=== PATIENT | male | born 1970 | race Caucasian/White ===

== ENCOUNTER 2019-05-07 09:59 | Emergency (ER) | payer SELFPAY ==
[2019-05-07] MEDS ORDERED: HYDROmorphone 1 MG/ML Syringe IVPUSH ONE (10:50)
[2019-05-07] MEDS ORDERED: Dexamethasone 4 MG/ML 5 ML MDV IV ONE (10:51)
--- NOTE | 2019-05-07 10:59 | EDM.PDOC ---
ED HPI GENERAL MEDICAL PROBLEM - General Chief Complaint: Back Pain or Injury Stated Complaint: [facility] Time Seen by Provider: 05/07/19 10:44 Source of Information: Reports: Patient History Limitations: Reports: Physical Impairment (Severely limited by any range of motion of his back.) - History of Present Illness INITIAL COMMENTS - FREE TEXT/NARRATIVE: 48-year-old male presents to the ED with diffuse severe lumbar spine pain. He states that 2 days ago he was doing very heavy lifts he states around 585 pounds. He states at the time that he did this work out he had warmed up his back appropriately. He states that he does not feel any pop or pain in his back that time. The following morning which was yesterday morning he felt stiffness and soreness on his back which only worsened as the day went on. This morning pain was so bad that he could not get out of bed on his own. He had called the [place] [facility] to come and pick him up. He has no radicular pain into either lower extremity. Pain is localized to one side versus the other. It is across his entire lower back. It seems to radiate up his lower back to the inferior aspects of his scapula. Even deep breathing hurts. Severe muscle spasms are evident that just above drop him to the floor. He states he has no polyp problems thus far with emptying his bladder he has not had a bowel movement today. He has never had any similar type injuries. Believe that the injuries are work-related. Onset: Gradual Onset Date: 05/06/19 (Awoke yesterday morning with mild pain sides of his lower back which is gradually intensified over the last 24 hours.) Duration: Hour(s):, Getting Worse Location: Reports: Back (Lumbar spine.). Denies: Radiates to Quality: Reports: Ache, Throbbing, Other Severity: Severe (Intermittent severe muscle spasms that will merely put him to the ground.) Improves with: Reports: Rest Worsens with: Reports: Movement (He can have spasms even at rest however.) Context: Reports: Other (Did lifting heavy weights.). 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) Lower Back Pain Score (Numeric/FACES): 8 - Related Data Allergies Allergy/AdvReac Type Severity Reaction Status Date / Time No Known Allergies Allergy Verified 05/07/19 10:06 Home Meds: Home Meds Cyclobenzaprine [Flexeril] 10 mg PO Q8H PRN #15 tab 05/07/19 [Rx] Diclofenac Sodium [Voltaren] 50 mg PO TID #24 tab.ec 05/07/19 [Rx] oxyCODONE HCl/Acetaminophen [Percocet 5-325 mg Tablet] 1 - 2 each PO Q4H PRN # 20 tablet 05/07/19 [Rx] predniSONE [Deltasone] 20 mg PO BID #10 tablet 05/07/19 [Rx] Past Medical History - Past Health History Medical/Surgical History: Denies Medical/Surgical History Social & Family History - Tobacco Use Smoking Status *Q: Never Smoker - Recreational Drug Use Recreational Drug Use: Yes Recreational Drug Use Frequency: Socially - Living Situation & Occupation Occupation: Employed ED ROS GENERAL - Review of Systems Review Of Systems: See Below Constitutional: Denies: Fever, Chills, Malaise, Weakness, Decreased Appetite HEENT: Reports: No Symptoms Respiratory: Reports: No Symptoms Cardiovascular: Reports: No Symptoms Endocrine: Reports: No Symptoms GI/Abdominal: Reports: No Symptoms Musculoskeletal: Reports: Back Pain (Severe bilateral low back pain with strong intermittent spasms), Muscle Pain, Muscle Stiffness (Severe) Skin: Reports: No Symptoms Neurological: Reports: No Symptoms, Other (No radiculopathy into either lower extremity.). Denies: Numbness, Paresthesia, Tingling Psychiatric: Reports: No Symptoms Hematologic/Lymphatic: Reports: No Symptoms Immunologic: Reports: No Symptoms ED EXAM,LOWER BACK PAIN/INJURY - Physical Exam Exam: See Below Exam Limited By: Physical Impairment (Severe low back pain limits his mobility to) General Appearance: Alert, WD/WN, Moderate Distress Eye Exam: Bilateral Eye: Normal Inspection Throat/Mouth: Normal Inspection, Normal Lips, Normal Teeth, Normal Oropharynx Head: Atraumatic, Normocephalic Neck: Normal Inspection, Supple, Non-Tender, Full Range of Motion, Limited Range of Motion. No: Lymphadenopathy (L), Lymphadenopathy (R) Respiratory/Chest: No Respiratory Distress, Lungs Clear, Normal Breath Sounds, No Accessory Muscle Use Cardiovascular: Normal Peripheral Pulses, Regular Rate, Rhythm, No Edema, No Murmur, No Rub, Tachycardia (Resting tachycardia of 113) GI/Abdominal: Normal Bowel Sounds, Soft, Non-Tender, No Organomegaly, No Abnormal Bruit, No Mass, Pelvis Stable Back Exam: Muscle Spasm (He has marked bilateral paraspinal muscle spasm up to the T7 vertebra bilaterally. This limits his umbilical mobility tremendously. We struggled in with both less we got him up and standing at the bedside for appropriate examination.), Paraspinal Tenderness (Bilaterally.). No: CVA Tenderness (L), CVA Tenderness (R), Vertebral Tenderness Extremities: Normal Inspection, Normal Range of Motion, Non-Tender, No Pedal Edema, Normal Capillary Refill Neurological: Alert, Normal Dorsiflexion, CN II-XII Intact, Oriented x 3 Psychiatric: Other Skin Exam: Warm, Dry, Intact (In a lot of pain.), Normal Color, No Rash Course - Vital Signs Last Recorded V/S: Last Vital Signs Temp 37.4 C 05/07/19 10:03 Pulse 113 H 05/07/19 10:03 Resp 18 05/07/19 10:03 BP 172/106 H 05/07/19 10:03 Pulse Ox 95 05/07/19 10:03 - Orders/Labs/Meds Meds: Medications Discontinued Medications Generic Name Dose Route Start Last Admin Trade Name [place]q PRN Reason Stop Dose Admin Dexamethasone 12 mg 05/07/19 10:51 05/07/19 10:57 Dexamethasone IV 05/07/19 10:52 12 mg ONETIME ONE Administration Diazepam 5 mg 05/07/19 10:50 05/07/19 10:57 Valium IVPUSH 05/07/19 10:51 5 mg ONETIME ONE Administration Hydromorphone HCl 1 mg 05/07/19 10:50 05/07/19 10:57 Dilaudid IVPUSH 05/07/19 10:51 1 mg ONETIME ONE Administration Dextrose/Sodium Chloride 1,000 mls @ 500 mls/hr 05/07/19 11:15 05/07/19 11:10 Dextrose 5%-Normal Saline IV 500 mls/hr ASDIRECTED TYREE Administration Ketorolac Tromethamine 30 mg 05/07/19 11:00 05/07/19 10:57 Toradol IVPUSH 30 mg ONETIME TYREE Administration Metoclopramide HCl 7.5 mg 05/07/19 11:03 05/07/19 11:10 Reglan IVPUSH 05/07/19 11:04 7.5 mg ONETIME ONE Administration - Radiology Interpretation Free Text/Narrative:: 48-year-old male presents to the ED for evaluation of severe diffuse low back pain. This seems to been started from doing very heavy lifts in the gym that 2 nights ago. She had mild diffuse low back pain yesterday which intensified as the day went on and this morning it was so bad he couldn't get out of bed due to severe muscle spasms. He states he was lifting about 585 pounds. He warmed up appropriately and has had no previous similar problems. Denies any radiculopathy into either buttock or lower extremity. Examination reveals bilateral paraspinal muscle spasm from lumbar [address] up to T7 bilaterally. Plan IV D5 normal saline at 500 mils per hour. Given Valium 5 mg IV with Dilaudid 1 mg IV and Reglan 7.5 mg IV. I'll 30 mg IV as well. He will have CT lumbar spine carried out without contrast - Re-Assessments/Exams Free Text/Narrative Re-Assessment/Exam: 05/07/19 13:08 CT of the lumbar spine reveals unilateral spondylitic defect at L5-S1 level right side. There is spondylolisthesis of about 3.4 mm at the L5-S1 level. There is disc space narrowing with vacuum disc phenomenon. Minimal circumferential disc bulge at L1-L2 level and L3-L4 level. No disc herniation is identified. Is bilateral neural foraminal stenosis at L5-S1 due to the spondylolisthesis. Patient states pain is markedly improved plan will be to discharge him home on dexamethasone 20 mg twice a day for 5 days. Voltaren 50 mg 3 times a day for 8 days and Percocet tabs 5/325 mg one or 2 every 4-6 hours needed for pain relief 20 tablets. Flexeril tabs 10 mg every 8 hours as needed for severe muscle spasm relief 15 tabs. Note given to excuse him from work at least until next Saturday. Departure - Departure Time of Disposition: 13:10 Disposition: Home, Self-Care 01 Condition: Fair Clinical Impression: Acute myofascial strain of lumbar region Qualifiers: Encounter type: initial encounter Qualified Code(s): S39.012A - Strain of muscle, fascia and tendon of lower back, initial encounter - Discharge Information *PRESCRIPTION DRUG MONITORING PROGRAM REVIEWED*: Not Applicable *COPY OF PRESCRIPTION DRUG MONITORING REPORT IN PATIENT HALEY: Not Applicable Prescriptions: Cyclobenzaprine [Flexeril] 10 mg PO Q8H PRN #15 tab PRN Reason: Muscle spasm relief Diclofenac Sodium [Voltaren] 50 mg PO TID #24 tab.ec oxyCODONE HCl/Acetaminophen [Percocet 5-325 mg Tablet] 1 - 2 each PO Q4H PRN # 20 tablet PRN Reason: pain relief. predniSONE [Deltasone] 20 mg PO BID #10 tablet Instructions: Lumbosacral Strain Referrals: PCP,None [Primary Care Provider] - Forms: ED Department Discharge, ED Return to Work/School Form Additional Instructions: Evaluation the emergency room this morning in regards to gradually worsening low back pain over the last 24-36 hours. Appears that you have suffered extensive myofascial which means muscle ligament strain in your lower back from did lifting heavy weights. 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 Just never grew together completely. There is mild slippage of the lumbar 5 vertebra on the first bone of the sacrum of about 3.4 mm. We call this a spondylo-listhesis. This is something that you were born with. Disc space narrowing at the L5-S1 level with vacuum disc phenomenon. There is minimal circumferential disc bulge at L1-L2 level and also at the L3-L4 level but no disc herniation. Since she do not have any nerve root impingement or pain rating down your leg I see no reason that you can continue your lifting activities at the gym although you may want to consider plateauing at a certain weight versus continually increasing weights especially in regards to squatting and leg presses and lifting which all effect of course her lower back. However exercise program keep should back muscles good strong. Treatment at this time in the hospitals intravenous medications for relief of pain Dilaudid 1 mg with dexamethasone 10 mg IV and Valium 5 mg IV for muscle relaxant. Suggest treatment at home to be activity as tolerated. Pain medication is to be Percocet 5/325 mg one or 2 every 4-6 hours necessary for pain relief. Anti- inflammatory program is to be Voltaren 50 mg 3 times daily with food for 8 days. Deltasone 20breakfast and supper for 5 days again as an anti-inflammatory agent. Lexapro 10 mg every 8 hours as needed for muscle relaxant and ease up spasms. Expect gradual improvement over the next 3-7 days. Just off work at least until Saturday or Saturday next week if not back to normal in 7-8 days you should be reviewed.
[2019-05-07] MEDS ORDERED: Ketorolac 30 MG/ML SDV IVPUSH SCH (11:00)
[2019-05-07] MEDS ORDERED: Metoclopramide 10 MG/2 ML SDV IVPUSH ONE (11:03)
[2019-05-07] MEDS ORDERED: Dextrose 5%-0.9% NaCl 1,000 ML IV SCH (11:15)
--- NOTE | 2019-05-07 12:14 | CT ---
CT lumbar spine Technique: Multiple axial sections were obtained from above the T10-T11 inferiorly through the L5-S1 disc. Reconstructed sagittal and coronal images were reviewed. Findings: Unilateral spondylolytic defect is noted on the right side at L5-S1. L5-S1 level shows spondylolisthesis by about 3.4 mm. Disc space narrowing is noted with vacuum disc phenomena. Scattered anterior endplate osteophytes are seen most prominent at L1-L2 and L5-S1. No acute fracture is seen. Minimal circumferential disc bulge is noted at L1-L2 with posterior disc maintaining a concave margin. Minimal circumferential disc bulge noted at L3-L4 with posterior disc maintaining a planar margin. Mild circumferential disc bulge is noted L4-L5 with disc having a planar margin. No disc herniation is seen. Bilateral neural foraminal stenosis is noted at L5-S1 due to the spondylolisthesis. No other findings of neural foraminal stenosis is seen. No central canal stenosis is noted. Impression: 1. Degenerative change as described above. Findings most severe at L5-S1 due to unilateral spondylolytic defect. There is bilateral neural foraminal stenosis noted at L5-S1. 2. Mild circumferential disc bulges as noted above. No focal disc herniation is seen. No acute abnormality is seen. Diagnostic code #2
== END 2019-05-07 13:26 | disposition home or self-care (01) ==
LOC: JD.ED 09:59
DX: S39.012A Strain of muscle, fascia and tendon of lower back, initial encounter (principal); X50.0XXA Overexertion from strenuous movement or load, initial encounter
CPT/HCPCS: 72131; 96361; 96374; 96375; 99284; J1100; J1170; J1885; J2765; J3360; J7042

== ENCOUNTER 2019-08-14 10:51 | Emergency (ER) | payer SELFPAY ==
[2019-08-14] MEDS ORDERED: Ketorolac 30 MG/ML SDV IVPUSH ONE (11:10)
[2019-08-14] MEDS ORDERED: Acetaminophen 325 MG Tab PO ONE (11:10)
[2019-08-14] MEDS ORDERED: Cyclobenzaprine 10 MG Tab PO ONE (11:10)
--- NOTE | 2019-08-14 11:17 | EDM.PDOC ---
ED HPI GENERAL MEDICAL PROBLEM - General Chief Complaint: Back Pain or Injury Stated Complaint: [facility] Time Seen by Provider: 08/14/19 10:55 Source of Information: Reports: Patient History Limitations: Reports: No Limitations - History of Present Illness INITIAL COMMENTS - FREE TEXT/NARRATIVE: Patient is a 48-year-old male who presents with complaints of lower back pain that has been going on since April of this year. Patient was seen this last April in the ER after experiencing severe lower back pain following an injury from lifting weights. He states he has had issues with lower back pain ever since that time although it did improve. He currently rates his pain 8 out of 10. Denies any new injury to the area. He has difficulty standing upright due to the pain and has been walking hunched over. Patient is supposed to get on a bus to travel home to [place] this evening and is concerned that he won't be able to sit for the duration of the trip. He has not been taking any [id number] or prescription medications for his pain. He states he tried Advil about a month ago when it didn't help. He denies any bowel or bladder involvement or any radiation of pain to his lower extremities. Lower Back Pain Score (Numeric/FACES): 8 - Related Data Allergies Allergy/AdvReac Type Severity Reaction Status Date / Time No Known Allergies Allergy Verified 08/14/19 10:55 Home Meds: Home Meds Cyclobenzaprine [Flexeril] 10 mg PO Q8H PRN #15 tab 08/14/19 [Rx] Diclofenac Sodium [Voltaren] 50 mg PO Q8H 8 Days #24 tab.ec 08/14/19 [Rx] Past Medical History - Past Health History Medical/Surgical History: Denies Medical/Surgical History Social & Family History - Tobacco Use Smoking Status *Q: Never Smoker - Caffeine Use Caffeine Use: Reports: None - Recreational Drug Use Recreational Drug Use: No - Living Situation & Occupation Occupation: Employed ED ROS GENERAL - Review of Systems Review Of Systems: See Below Constitutional: Reports: No Symptoms HEENT: Reports: No Symptoms Respiratory: Reports: No Symptoms Cardiovascular: Reports: No Symptoms Endocrine: Reports: No Symptoms GI/Abdominal: Reports: No Symptoms : Reports: No Symptoms Musculoskeletal: Reports: Back Pain (lumbar) Skin: Reports: No Symptoms Neurological: Reports: No Symptoms. Denies: Paresthesia Psychiatric: Reports: No Symptoms Hematologic/Lymphatic: Reports: No Symptoms Immunologic: Reports: No Symptoms ED EXAM,LOWER BACK PAIN/INJURY - Physical Exam Exam: See Below Exam Limited By: No Limitations General Appearance: Alert, WD/WN, No Apparent Distress Respiratory/Chest: No Respiratory Distress, Lungs Clear, Normal Breath Sounds, No Accessory Muscle Use, Chest Non-Tender Cardiovascular: Normal Peripheral Pulses, Regular Rate, Rhythm, No Edema, No Murmur Back Exam: Normal Inspection, Decreased Range of Motion, Paraspinal Tenderness ( T10-L5 left greater than right). No: Vertebral Tenderness Neurological: Alert, Normal Mood/Affect, No Motor/Sensory Deficits Psychiatric: Normal Affect, Normal Mood Skin Exam: Warm, Dry, Intact, Normal Color, No Rash Lymphatic: No Adenopathy Course - Vital Signs Last Recorded V/S: Last Vital Signs Temp 97.0 F 08/14/19 10:54 Pulse 109 H 08/14/19 10:54 Resp 18 08/14/19 10:54 BP 122/82 08/14/19 10:54 Pulse Ox 100 08/14/19 10:54 - Orders/Labs/Meds Meds: Medications Discontinued Medications Generic Name Dose Route Start Last Admin Trade Name Veronica PRN Reason Stop Dose Admin Acetaminophen 975 mg 08/14/19 11:10 08/14/19 11:36 Tylenol PO 08/14/19 11:11 975 mg NOW ONE Administration Albuterol/Ipratropium Confirm 08/14/19 11:43 Duoneb 3.0-0.5 Mg/3 Ml Administered 08/14/19 11:44 Dose 3 ml .ROUTE .STK-MED ONE Cyclobenzaprine HCl 10 mg 08/14/19 11:10 08/14/19 11:36 Flexeril PO 08/14/19 11:11 10 mg ONETIME ONE Administration Ketorolac Tromethamine 30 mg 08/14/19 11:10 08/14/19 11:36 Toradol IVPUSH 08/14/19 11:11 30 mg ONETIME ONE Administration - Re-Assessments/Exams Free Text/Narrative Re-Assessment/Exam: Patient denies any acute injury to the area. States this has been ongoing since April. He does have marked bilateral paraspinal tenderness to the lumbar region with the left being worse than the right. I ordered Flexeril, Toradol, and Tylenol. If he verbalizes relief from these medications, I will plan to discharge him with a prescription for Flexeril as well as Voltaren. 08/14/19 12:00 Patient does verbalize relief from symptoms with the medications that were administered. I will send a prescription for Flexeril and Voltaren to [facility]. Discharge instructions as noted. Departure - Departure Time of Disposition: 12:01 Disposition: Home, Self-Care 01 Condition: Fair Clinical Impression: Low back pain Qualifiers: Chronicity: chronic Back pain laterality: unspecified Sciatica presence: without sciatica Qualified Code(s): M54.5 - Low back pain - Discharge Information *PRESCRIPTION DRUG MONITORING PROGRAM REVIEWED*: No *COPY OF PRESCRIPTION DRUG MONITORING REPORT IN PATIENT HALEY: No Prescriptions: Cyclobenzaprine [Flexeril] 10 mg PO Q8H PRN #15 tab PRN Reason: Spasms Diclofenac Sodium [Voltaren] 50 mg PO Q8H 8 Days #24 tab.ec Instructions: Chronic Back Pain, [id number] Referrals: PCP,Unknown [Ordering Only Provider] - Forms: ED Department Discharge Additional Instructions: You were seen in the emergency department today for lower back pain that has been going on since April. While in the ER, he did receive Toradol, Flexeril, and Tylenol. You did verbalize that these medications improved her symptoms. A prescription has been sent to [facility] for Voltaren and Flexeril. Take those medications as prescribed. As we discussed, it is important for you to establish a primary care provider to have ongoing management of your chronic back pain. If you experience any new or worsening symptoms, please do not hesitate to return to the emergency department. Sepsis Event Note - Evaluation Sepsis Screening Result: No Definite Risk - Focused Exam Vital Signs: Vital Signs Temp Pulse Resp BP Pulse Ox 08/14/19 10:54 97.0 F 109 H 18 122/82 100 Date Exam was Performed: 08/14/19 Time Exam was Performed: 12:47
[2019-08-14] MEDS ORDERED: Albuterol/Ipratropium 3.0-0.5 MG/3 ML Neb Soln ONE (11:43)
== END 2019-08-14 12:49 | disposition home or self-care (01) ==
LOC: JD.ED 10:51
DX: G89.29 Other chronic pain (principal); M54.5 Low back pain
CPT/HCPCS: 96374; 99283; A9270; J1885

== ENCOUNTER 2023-09-09 20:21 | Emergency (ER) | payer SELFPAY | END 2023-09-09 20:42 | LOC: JD.ED 20:21 | DX: F10.129 Alcohol abuse with intoxication, unspecified (principal) | CPT/HCPCS: 99282; 99284 ==